=== PATIENT | male | born 1955 | race Caucasian/White ===

== ENCOUNTER 2023-07-01 06:46 | Emergency (ER) | payer MEDICAID ==
[~2023-07-01] VITALS: Ht 167.6 cm; Wt 100.0 kg
[2023-07-01 06:54] VITALS: O2SAT 100
[2023-07-01] MEDS ORDERED: FAMOTIDINE 20MG TABLET PO ONE (07:00)
[2023-07-01] MEDS ORDERED: PREDNISONE 20MG TABLET PO ONE (07:00)
[2023-07-01] MEDS ORDERED: B50 GT (07:11)
[2023-07-01] MEDS ORDERED: FAMO40TA70 PO (07:11)
[2023-07-01] MEDS ORDERED: P50 MT (07:11)
[2023-07-01 07:46] VITALS: BP 135/67; PULSE 76; RESP 17; TEMP 98.4
== END 2023-07-01 08:01 | disposition home or self-care (01) ==
LOC: ER 06:46
DX: T78.40XA Allergy, unspecified, initial encounter (principal); Z88.0 Allergy status to penicillin; X58.XXXA Exposure to other specified factors, initial encounter
CPT/HCPCS: 99283; J7512